=== PATIENT | female | born 1995 | race Caucasian/White ===

== ENCOUNTER 2017-07-15 11:17 | Emergency (ER) | payer OTHER ==
[~2017-07-15] VITALS: Ht 172.7 cm; Wt 69.0 kg
[2017-07-15] MEDS ORDERED: NAPROSYN500 M1 PO (13:26)
[2017-07-15] MEDS ORDERED: ROBAXIN500 MG PO (13:26)
[2017-07-15 13:47] VITALS: BP 128/76
== END 2017-07-15 13:48 | disposition home or self-care (01) ==
LOC: M.ERS 11:17
DX: S16.1XXA Strain of muscle, fascia and tendon at neck level, initial encounter (principal); S39.012A Strain of muscle, fascia and tendon of lower back, initial encounter; Z88.1 Allergy status to other antibiotic agents; V43.62XA Car passenger injured in collision with other type car in traffic accident, initial encounter; Y93.89 Activity, other specified; Y92.89 Other specified places as the place of occurrence of the external cause; Y99.8 Other external cause status

== ENCOUNTER 2018-09-05 16:53 | Emergency (ER) | payer OTHER ==
[~2018-09-05] VITALS: Ht 172.7 cm; Wt 65.3 kg
[~2018-09-05 16:53] MED LIST: NAPROSYN500 M1 PO; ROBAXIN500 MG PO
[2018-09-05] MEDS ORDERED: PREDNISONE 10 M10 MG PO (17:22)
[2018-09-05] MEDS ORDERED: TRIAMCINOLONE A80 G2 TOP (17:36)
[2018-09-05 17:43] VITALS: BP 117/57
== END 2018-09-05 17:43 | disposition home or self-care (01) ==
LOC: M.ERS 16:53
DX: L25.9 Unspecified contact dermatitis, unspecified cause (principal); Z88.1 Allergy status to other antibiotic agents